=== PATIENT | female | born 1930 | race Caucasian/White ===

== ENCOUNTER 2016-06-23 20:53 | Emergency (ER) | payer MEDICARE ==
[~2016-06-23] VITALS: Ht 162.6 cm; Wt 35.0 kg
[~2016-06-23 20:53] MED LIST: ASPI-628 PO; BECL8.7A5 INH; CHOL2000 PO; LISI-609 PO; METO50TA7 PO; MIRT7.5T8 PO; PRE20 PO; SIMV40TA5 PO; TIOT18CA3 IH
[2016-06-23 21:00] VITALS: PULSE 83; RESP 20; O2SAT 98
--- NOTE | 2016-06-23 22:15 | ED.REPORT ---
HPI-Dyspnea / Wheezing Date of Service Jun 23, 2016 ED Provider: Jose Banegas MD Pt is an 86 y.o. female with a hx of COPD and PE who presents to the ED via EMS accompanied by her trust operations assistant after being notified she had an elevated CO2 on standard blood draw. Pt was seen by her PCP, Dr. Meza, earlier today. While in the office her O2 sats were around 80%. They called her later today with the results and recommended she come into the ED, they also recommended that she turn her home O2 down to 1and not take her Coumadin or anxiety medications. Pt is currently on 2l constant O2 at home. Pt states that she is nervous but does not have any further medical complaints at this time. Nursing Notes Stated Complaint: COPD EXACERBATION Chief Complaint: Respiratory Complaints Nursing Notes Reviewed: Yes Allergies: Coded Allergies: Penicillins (Verified Allergy, Severe, rash/hives, 04/28/15) Sulfa (Sulfonamide Antibiotics) (Verified Allergy, Mild, NOT SURE WHAT HAPPENS, 04/28/15) [place] Pepper (Verified Allergy, Unknown, 04/28/15) epinephrine (Verified Allergy, Unknown, 04/28/15) hydrochlorothiazide (Verified Allergy, Unknown, 02/09/09) lidocaine (Verified Allergy, Unknown, 02/09/09) procaine (Verified Allergy, Unknown, 08/29/14) Uncoded Allergies: BLACK PEPPER (Allergy, Unknown, 04/26/15) ONIONS (Allergy, Unknown, 04/26/15) Scheduled Aspirin (Aspir 81) 81 Mg Tablet.dr 81 MG PO MOWEFR Beclomethasone Dipropionate (Qvar) 8.7 Gm Aer.w.adap 1 PUFF INH BID Cholecalciferol (Vitamin D3) (Vitamin D) 2,000 Unit Capsule 2,000 UNIT PO PM Lisinopril (Zestril) 5 Mg Tablet 5 MG PO BID Metoprolol Succinate ER (Toprol XL) 50 Mg Tablet.er 50 MG PO HS Mirtazapine (Mirtazapine) 7.5 Mg Tablet 7.5 MG PO HS Prednisone (PredniSONE) 20 Mg Tablet 20 MG PO DAILY Simvastatin (Simvastatin) 40 Mg Tablet 40 MG PO HS Tiotropium [place] (Spiriva) 18 Mcg Cap.w.dev 18 MCG IH HS General Time Seen by MD: 22:11 Chief Complaint Other (Abnormal venous O2) Hx Obtained From: Patient, Director Hr Communications Arrived By: Ambulance Sudden in Onset?: Yes Onset Occurred: Just prior to arrival Past Medical History Past Medical History Notes: PCP: Dr. Julien Past Medical History Pt has known severe COPD. She has a prior hx of pulmonary emboli. Pt has been on Coumadin therapy for emboli since April of 2006. She has prior history of DVT in right leg in 1973 Reports: Hyperlipidemia, Hypertension Past Surgical History Right breast biopsy Colon Cancer Surgery 2006 Family History Reviewed, not relevant. Smoking History Former Smoker Social History Alcohol Use: Denies alcohol use Drug Use: Denies drug use Other Social History: Good social support, [place] Ambulatory Status Walker Review of Systems Elevated CO2 on standard blood draw Respiratory: Denies: Shortness of breath Cardiovascular: Denies: Chest pain Complete sys rev & neg: except as marked. Psychiatric: Reports: Anxiety Physical Exam Initial Vital Signs Vital Signs (First) Date Time Temp Pulse Resp B/P Pulse Ox O2 Delivery O2 Flow Rate FiO2 06/23/16 21:00 83 20 98 Nasal Cannula 06/24/16 00:36 138/60 1 Initial VS: Reviewed, Vital signs normal Head / Eyes: Atraumatic, Normocephalic Abdomen / GI: No distention Extremities: Vascular intact, Neuro intact Skin: Warm, Dry, No cyanosis Neurologic: Alert, Oriented, Nonfocal Psychiatric: Mood/affect normal, Behavior normal, Normal thought content General/Constitutional: Awake, Alert, No acute distress, Well appearing, Well hydrated, Not toxic appearing Appearance / Presentation: Positive: Cachectic Neck: Atraumatic Respiratory / Chest: Atraumatic, Breath sounds NL, Breath sounds = bilat, No respiratory distress, No rales, No rhonchi, No wheezing, No retractions, No stridor Cardiovascular: Heart rate NL, Regular rhythm, Heart sounds NL, Peripheral circulation NL Interpretation & Diagnostics Lab Results Interpretation Result Diagram: 06/23/16 2315 Test 06/23/16 23:15 06/24/16 00:00 Sodium Level 143mEq/L (134-144) Potassium Level 3.6mEq/L (3.5-5.2) Chloride Level 95mEq/L (97-108) Carbon Dioxide Level 40mmol/L (18-29) Blood Urea Nitrogen 19mg/dL (8-27) Creatinine 0.46mg/dL (0.57-1.00) Estimat Glomerular Filtration Rate 184mL/min (>59) Glucose Level 94mg/dL (60-99) Calcium Level 9.5mg/dL (8.5-10.1) Hold Ray Top Tube Received (Received) Hold Urine Received (Received) Lab Results Interpretation: Elevated CO2 secondary to chronic lung disease. ABG Interpretation ABG Interpretation: pH - 7.344 pCO2 - 78 pO2 - 90.3 cHCO3 - 41.3 cBase - 13.3 Exam Interpreted by: ED physician ABG Additional Information: Chronic lung disease with CO2 retention. Re-Eval/Medical Decision Med Decision/Clinical Course She is in no respiratory distress. She has chronically been on oxygen 1-2 L for nearly 10 years. She has no indication at this time of a severe acute exacerbation of her COPD. I see no indication for further intervention at this time. Family was warned about using too much oxygen. Source of Hx: Old records Re-Evaluation/Progress #1: Time of Eval: 22:50 Re-Evaluation/Progress Note: Pt rechecked. Pt's daughter is now in the room. Discussed consult with Dr. Meza and need for ABG. Re-Evaluation/Progress #2: Time of Eval: 23:50 Re-Evaluation/Progress Note: Pt rechecked. Discussed ABG and plan for discharge, pt understands and agrees with plan. Consultation : Referral / Consult Name: Uri Meza MD Consulted With: Primary care physician Call Returned at: 22:46 Note: Consulted with Dr. Mzea, he states that in office her 02 sats were 80% and CO2 on blood draw was 41. He states that he did not perform an ABG. Discharge & Departure Impression: Primary Impression: CO2 retention Disposition: Home Discharge Condition All VS Reviewed: Yes Patient Instructions: Chronic Obstructive Pulmonary Disease (ED), Using Oxygen at Home (ED) Additional Instructions: There does not seem to be an acute problem at this time. You do retain CO2 and have low oxygen, both as a result of her chronic lung disease. It is important in your situation not to use extra O2. Follow-up as needed with your provider. Referrals: Josue Burgess MD (PCP) Scribe Attestation Portions of this note were transcribed by Kit Torrez. I, Dr. Banegas personally performed the history, physical exam and medical decision-making; I reviewed and confirmed the accuracy of the information in the transcribed note. Signed by: Nedra Kaiser, 06/24/16 and 0009. copies to: Uri Meza MD; Josue Burgess MD, Howard L MD Jun 23, 2016 22:15 KIT TORREZ Jun 23, 2016 22:33
--- NOTE | 2016-06-23 23:42 | ABG ---
DateTimeAnalyzed 23:37:00 -_ pH ____7.344 - 7.350 7.450 pCO2 ___78.0__ -mmHg 35.0 45.0 pO2 ___90.3__ -mmHg 69.0 116 HCO3- ___41.3__ -mmol/L 22.0 26.0 ABE ___13.3__ -mmol/L -2.0 2.0 tHb ___10.3__ -g/dL O2Hb ___95.8__ -% COHb ____0.8__ -% MetHb ____0.9__ -% sO2 ___97.5__ -% FIO2 ___32.0__ -% Drawn By MK - Date/Time Notified____ 23:41:00 -_ Liter_Flow ____2.0__ -L/min Oxygen Device 1 __CANNULA - Notified By MK - Notified Whom Dr Leibrand - B 763 -mmHg tO2 ___14.0__ -Vol% Malcolm test _Positive -
[2016-06-24 00:36] VITALS: BP 138/60; PULSE 83; RESP 18; O2SAT 98
== END 2016-06-24 00:26 | disposition home or self-care (01) ==
LOC: SED 20:53 → EDBD 20:53 → EDUNIT# 20:53 → SED 06-24 00:26
DX: E87.2 Acidosis (principal); J44.9 Chronic obstructive pulmonary disease, unspecified; I10 Essential (primary) hypertension; E78.5 Hyperlipidemia, unspecified; Z99.81 Dependence on supplemental oxygen; Z86.711 Personal history of pulmonary embolism; Z86.718 Personal history of other venous thrombosis and embolism; Z87.891 Personal history of nicotine dependence; Z79.01 Long term (current) use of anticoagulants; Z79.82 Long term (current) use of aspirin; Z88.0 Allergy status to penicillin; Z88.2 Allergy status to sulfonamides; Z88.8 Allergy status to other drugs, medicaments and biological substances; Z88.4 Allergy status to anesthetic agent